=== PATIENT | male | born 1975 | race African-American/Black ===

== ENCOUNTER 2018-07-20 18:41 | Emergency (ER) | payer SELFPAY ==
[2018-07-20] MEDS ORDERED: diphenhydrAMINE 25 MG Cap PO ONE (20:13)
[2018-07-20] MEDS ORDERED: Dexamethasone 10 MG/ML SDV IM ONE (20:14)
--- NOTE | 2018-07-20 21:18 | EDM.PDOC ---
<Mary Reyna - Last Filed: 07/20/18 23:01> ED HPI GENERAL MEDICAL PROBLEM - General Chief Complaint: Allergic Reaction Stated Complaint: SWOLLEN EYE & NEEDS A MED REFILL Time Seen by Provider: 07/20/18 19:41 Source of Information: Reports: Patient History Limitations: Reports: No Limitations - History of Present Illness Onset Date: 07/19/18 Onset Time: 15:00 Duration: Day(s):, Getting Worse Location: Reports: Abdomen, Generalized (pruitius on abdomin, chest bilateral upper legs) Generalized Pain Score (Numeric/FACES): 6 - Related Data Allergies Allergy/AdvReac Type Severity Reaction Status Date / Time No Known Allergies Allergy Verified 07/20/18 19:17 Home Meds: Home Meds predniSONE [Prednisone] 40 mg PO DAILY 5 Days #5 tablet 07/20/18 [Rx] Past Medical History - Past Health History Medical/Surgical History: Denies Medical/Surgical History Social & Family History - Tobacco Use Smoking Status *Q: Current Every Day Smoker Years of Tobacco use: 20 Packs/Tins Daily: 1 - Caffeine Use Caffeine Use: Reports: Coffee, Energy Drinks - Recreational Drug Use Recreational Drug Use: No ED ROS ALLERGIC REACTION - Review of Systems Review Of Systems: See Below Constitutional: Reports: No Symptoms HEENT: Reports: No Symptoms. Denies: Throat Pain, Throat Swelling Respiratory: Reports: No Symptoms. Denies: Shortness of Breath Cardiovascular: Reports: No Symptoms Endocrine: Reports: No Symptoms GI/Abdominal: Reports: No Symptoms : Reports: No Symptoms Musculoskeletal: Reports: No Symptoms Skin: Reports: No Symptoms, Pruritis Neurological: Reports: No Symptoms Psychiatric: Reports: No Symptoms Hematologic/Lymphatic: Reports: No Symptoms Immunologic: Reports: No Symptoms ED EXAM GENERAL NO PERIP PULSE - Physical Exam Exam: See Below Exam Limited By: No Limitations General Appearance: Alert, WD/WN, No Apparent Distress Ears: Normal External Exam, Normal Canal, Hearing Grossly Normal, Normal TMs Nose: Normal Inspection, Normal Mucosa, No Blood Throat/Mouth: Normal Inspection, Normal Lips, Normal Teeth, Normal Gums, Normal Oropharynx, Normal Voice, No Airway Compromise Head: Atraumatic, Normocephalic Neck: Normal Inspection, Supple, Non-Tender, Full Range of Motion Respiratory/Chest: No Respiratory Distress, Lungs Clear, Normal Breath Sounds, No Accessory Muscle Use, Chest Non-Tender Cardiovascular: Normal Peripheral Pulses, Regular Rate, Rhythm, No Edema, No Gallop, No JVD, No Murmur, No Rub GI/Abdominal: Normal Bowel Sounds, Soft, Non-Tender, No Organomegaly, No Distention, No Abnormal Bruit, No Mass Back Exam: Normal Inspection, Full Range of Motion, NT Extremities: Normal Inspection, Normal Range of Motion, Non-Tender, Normal Capillary Refill, No Pedal Edema Neurological: Alert, Oriented, CN II-XII Intact, Normal Cognition, Normal Gait, Normal Reflexes, No Motor/Sensory Deficits Psychiatric: Normal Affect, Normal Mood Skin Exam: Warm, Dry, Intact, Normal Color, Erythema (macular areas noted on upper thighs and upper chest and abdomin) Lymphatic: No Adenopathy Course - Vital Signs Last Recorded V/S: Last Vital Signs Temp 98.1 F 07/20/18 19:13 Pulse 81 07/20/18 19:13 Resp 18 07/20/18 19:13 BP 142/87 H 07/20/18 19:13 Pulse Ox 95 07/20/18 19:13 - Orders/Labs/Meds Meds: Medications Discontinued Medications Generic Name Dose Route Start Last Admin Trade Name Nenoq PRN Reason Stop Dose Admin Dexamethasone 6 mg 07/20/18 20:14 07/20/18 20:24 Dexamethasone IM 07/20/18 20:15 6 mg ONETIME ONE Administration Diphenhydramine HCl 25 mg 07/20/18 20:13 07/20/18 20:24 Benadryl PO 07/20/18 20:14 25 mg ONETIME ONE Administration - Re-Assessments/Exams Free Text/Narrative Re-Assessment/Exam: 07/20/18 21:18 43 y/o male presents to ER with cc generalized rash since yesterday. He received Decadon and Benadryl and his condition improved. I will discharge home with a short course of Natalio Departure - Departure Time of Disposition: 21:15 Disposition: Home, Self-Care 01 Clinical Impression: Allergic urticaria - Discharge Information *PRESCRIPTION DRUG MONITORING PROGRAM REVIEWED*: Not Applicable *COPY OF PRESCRIPTION DRUG MONITORING REPORT IN PATIENT SUSHILA: Not Applicable Prescriptions: predniSONE [Prednisone] 40 mg PO DAILY 5 Days #5 tablet Instructions: Hives, [id number], Allergies, Adult Referrals: PCP,None [Primary Care Provider] - Forms: ED Department Discharge <Brunilda,Juan Jose L - Last Filed: 07/22/18 11:27> Course - Re-Assessments/Exams Free Text/Narrative Re-Assessment/Exam: 07/22/18 11:26 Patient was seen by EVELYN Lezama. I have also evaluated patient. I agree with hx, exam, treatment and treatment plan as documented.
== END 2018-07-20 21:30 | disposition home or self-care (01) ==
LOC: JD.ED 18:41
DX: L50.0 Allergic urticaria (principal); F17.210 Nicotine dependence, cigarettes, uncomplicated
CPT/HCPCS: 96372; 99283; A9270; J1100